=== PATIENT | female | born 1950 | race African-American/Black ===

== ENCOUNTER → 2017-06-27 | Outpatient (CLI) | payer OTHER, MEDICARE ==
--- NOTE | 2017-06-27 12:35 | RADIOLOGY REPORT (SQ) ---
EXAM DESCRIPTION: MRI LUMBAR SPINE WITHOUT COMPLETED DATE/TIME: 06/27/2017 9:51 am REASON FOR STUDY: M51.36 OTHER INTERVERTEBRAL DISC DEGENERATION, LUMBAR REGION M51.36 OTHER INTERVE RTEBRAL DISC DEGENERATION, LUMBAR REGION COMPARISON: None. TECHNIQUE: Sagittal and Axial imaging includes T1, T2, STIR and gradient echo sequences. Coronal T2/ HASTE imaging. LIMITATIONS: None. FINDINGS: VISUALIZED UPPER ABDOMEN: Limited evaluation. No acute or suspicious findings suggested. SEGMENTATION: No transitional anatomy. The lowest well-developed disc space is labeled L5-S1. ALIGNMENT: Anatomic. VERTEBRAE: Intact. BONE MARROW: Bony sclerosis along the L4-5 vertebral body endplates DISC SIGNAL: Diffuse decreased T2 weighted intervertebral disc signal at L2-3, L3-4, and L4-5. High- grade disc space loss of height at L4-5 POSTERIOR ELEMENTS: Generally intact. No pars defect evident. HARDWARE: None in the spine. CORD AND CONUS: Normal in size and signal intensity. Conus at the L1-2 level. Benign perineural cyst s over the sacral nerve roots SOFT TISSUES: No aortic aneurysm seen. No bulky retroperitoneal adenopathy or mass. No paraspinal mas s or fluid. T11-12: Mild bilateral facet hypertrophy. No significant central or foraminal stenosis. T12-L1: No central or foraminal stenosis L1-L2: No central or foraminal stenosis. Mild bilateral facet hypertrophy. L2-L3: Mild diffuse posterior disc bulging. Moderate bilateral facet and ligament hypertrophy. Bord mylene central canal narrowing. No significant foraminal narrowing. L3-L4: Mild diffuse posterior disc bulging, moderate bilateral facet and ligament hypertrophy. Mild central canal narrowing with flattening of the thecal sac into a triangular shape. There is mild stacey ateral inferior foraminal narrowing without exiting L3 nerve root impingement. L4-L5: Broad diffuse posterior disc bulge and bony spurring, moderate bilateral facet and ligament hy pertrophy. Mild central canal narrowing, with flattening of the thecal sac into a triangular shape. There is mild right and moderate left foraminal narrowing without exiting L4 nerve root impingement. L5-S1: Mild diffuse posterior disc bulging, moderate bilateral facet and ligament hypertrophy. Borde rline central canal narrowing. Mild bilateral inferior foraminal narrowing without exiting L5 nerve root impingement. SACRUM: Visualized upper sacrum intact. OTHER: No other significant findings. IMPRESSION: Multilevel mild degenerative changes as above. TECHNICAL DOCUMENTATION: JOB ID: [id number] [employer]- All Rights Reserved
== END ==
LOC: RAD 08:58
PROVIDERS: ATTEND Family Medicine
DX: M51.36 Other intervertebral disc degeneration, lumbar region (principal)
CPT/HCPCS: 72148

== ENCOUNTER 2017-11-16 21:36 | Emergency (ER) | payer MEDICARE ==
[2017-11-16 22:01] VITALS: BP 157/76
[2017-11-17] MEDS ORDERED: IBUPROFEN 600 MG TABLET PO ONE (01:41)
--- NOTE | 2017-11-17 01:45 | ER Document Report ---
ED General - General Chief Complaint: Back Pain Stated Complaint: BACK PAIN Time Seen by Provider: 11/17/17 01:23 Notes: 67-year-old lady with known degenerative spine disease presents with back pain right lateral shooting up and down the right back worse with movement for 3 days. No incontinence or saddle anesthesia or neurologic symptoms. She had an MRI in June which showed multilevel degenerative disc disease with some thecal sac indenting but no significant cord, cauda, or nerve root impingement. She was supposed to see a spine surgeon and has not. She has been taking only aspirin. No fever or injection drug use. TRAVEL OUTSIDE OF THE [place] IN LAST 30 DAYS: No - Related Data Allergies/Adverse Reactions: No Known Allergies Allergy (Unverified 11/17/17 00:51) Past Medical History - Social History Smoking Status: Unknown if Ever Smoked Family History: None Patient has suicidal ideation: No Patient has homicidal ideation: No Renal/ Medical History: Denies: Hx Peritoneal Dialysis Review of Systems - Review of Systems Notes: REVIEW OF SYSTEMS GEN: Denies fever, chills, weight loss ENT: Denies sore throat, nasal discharge, ear pain EYES: Denies blurry vision, eye pain, discharge CV: Denies chest pain, palpitations, edema RESP: Denies cough, shortness of breath, wheezing GI: Denies abdominal pain, nausea, vomiting, diarrhea MSK: Back pain SKIN: Denies rash, skin lesions LYMPH: Denies swollen glands/lymph nodes NEURO: Denies headache, focal weakness or numbness, dizziness PSYCH: Denies depression, suicidal or homicidal ideation PHYSICAL EXAMINATION General: No acute distress, well-nourished Head: Atraumatic, normocephalic ENT: Mouth normal, oropharynx moist, no exudates or tonsillar enlargement Eyes: Conjunctiva normal, pupils equal, lids normal Neck: No JVD, supple, no guarding CVS: Normal rate, regular rhythm, no murmurs Resp: No resp distress, equal and normal breath sounds bilaterally GI: Nondistended, soft, no tenderness to palpation, no rebound or guarding Ext: No deformities, no edema, normal range of motion in upper and lower ext Back: No CVA or midline TTP and right paraspinous spasm. Skin: No rash, warm Lymphatic: No lymphadeopathy noted Neuro: Awake, alert. Face symmetric. GCS 15. 5 out of 5 knee flexion extension ankle dorsiflexion and plantar flexion, normal sensation in both feet bilaterally, normal reflexes at the heel bilaterally. Physical Exam - Vital signs Vitals: Temp Pulse BP Pulse Ox 98.7 F 85 157/76 H 97 11/16/17 21:28 11/16/17 21:28 11/16/17 21:28 11/16/17 21:28 Course - Re-evaluation Re-evalutation: 11/17/17 01:42 Acute on chronic back pain with known degenerative spine disease. This time it seems more like spasm, there is no evidence on history or physical examination of cauda equina syndrome or other significant neurologic impingement, this is consistent with the MRI that was done 3 months ago. Patient drove herself. I will give her a prescription for muscle relaxers. She requests something in the ED and also stated "what about my urine" which she says, after not mentioning initially that she has had some frequent urination for the past day. Will check blood sugar and urinalysis. 11/17/17 02:18 Urinalysis is positive. Will treat for pyelonephritis. Still appropriate for outpatient management. Blood sugar normal. I have discussed with the patient there likely diagnosis, aftercare plan, follow-up plans and my usual and customary return precautions. They verbalized understanding of this. - Vital Signs Vital signs: Temp Pulse Resp BP Pulse Ox 98.7 F 85 157/76 H 97 11/16/17 21:28 11/16/17 21:28 11/16/17 21:28 11/16/17 21:28 - Laboratory Laboratory results interpreted by me: 11/17/17 01:40 Urine Protein 30 H Urine Urobilinogen 2.0 H Ur Leukocyte Esterase MODERATE H Discharge - Discharge Clinical Impression: Back muscle spasm, Pyelonephritis Condition: Good Disposition: HOME, SELF-CARE Instructions: Ice Packs ([facility]), Low Back Pain ([facility]), Pyelonephritis ([facility]) Additional Instructions: Please complete your spine referral through your primary care doctor, as you have a significant collection of problems with her lumbar spine as evidenced by her recent MRI. Prescriptions: Methocarbamol [Robaxin] 500 mg PO TIDP PRN #14 tablet PRN Reason: Sulfamethoxazole/Trimethoprim [Bactrim Ds Tablet] 1 each PO BID #14 tablet
[2017-11-17 02:08] LABS: AMORPHOUS SEDIMENT,URINE TRACE /HPF; APPEARANCE,URINE CLOUDY; BILIRUBIN,URINE NEGATIVE (NEGATIVE); COLOR,URINE AMBER; GLUCOSE, URINE NEGATIVE (NEGATIVE); KETONES,URINE NEGATIVE (NEGATIVE); LEUKOCYTE ESTERASE,URINE MODERATE (NEGATIVE); NITRITE,URINE NEGATIVE (NEGATIVE); PROTEIN,URINE 30 mg/dL (NEGATIVE); URINE SPECIFIC GRAVITY 1.023
[2017-11-17] MEDS ORDERED: SULFAMETHOXAZOLE/TRIMETHOPRIM 800-160 MG TABLET PO ONE (02:20)
== END 2017-11-17 02:25 | disposition home or self-care (01) ==
LOC: ER 21:36
DX: M62.830 Muscle spasm of back (principal); N12 Tubulo-interstitial nephritis, not specified as acute or chronic; M54.9 Dorsalgia, unspecified
CPT/HCPCS: 99283; 82962; 81001; A9270 ×2

== ENCOUNTER 2019-10-02 09:31 | Emergency (ER) | payer OTHER, MEDICARE ==
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
[2019-10-02] MEDS ORDERED: HYDROCODONE/ACETAMINOPHEN 5-325 MG TABLET PO ONE (12:14)
[2019-10-02 13:54] VITALS: BP 163/75
== END 2019-10-02 13:50 | disposition home or self-care (01) ==
LOC: ER 09:31
DX: S63.501A Unspecified sprain of right wrist, initial encounter (principal); S16.1XXA Strain of muscle, fascia and tendon at neck level, initial encounter; S89.91XA Unspecified injury of right lower leg, initial encounter; M54.2 Cervicalgia; M25.561 Pain in right knee; R07.89 Other chest pain; V43.52XA Car driver injured in collision with other type car in traffic accident, initial encounter; I10 Essential (primary) hypertension; Z79.82 Long term (current) use of aspirin
CPT/HCPCS: 72125; 99284